=== PATIENT | female | born 1950 | race Caucasian/White ===

== ENCOUNTER → 2020-02-07 09:01 | Outpatient (BNVA) | payer MEDICARE, OTHER, SELFPAY | PROVIDERS: PCP Internal Medicine; Referring Provider Internal Medicine; Visit Provider Internal Medicine Endocrinology, Diabetes & Metabolism | DX: M81.0 Age-related osteoporosis without current pathological fracture (principal); E55.9 Vitamin D deficiency, unspecified | CPT/HCPCS: 99212 ==

== ENCOUNTER 2020-02-08 11:23 | Outpatient (REF) | payer MEDICARE, OTHER, SELFPAY ==
[2020-02-08 14:21] LABS: Alanine Aminotransferase 19 U/L (0-31); Albumin Level 4.3 g/dL (3.5-5.0); Alkaline Phosphatase 97 U/L (39-117); Anion Gap 11 (12-20); Aspartate Amino Transferase 17 U/L (5-31); Bilirubin Total 0.6 mg/dL (0.0-1.0); Blood Urea Nitrogen 12 mg/dL (9-16); Carbon Dioxide 32 mmol/L (22-29); Chloride 102 mmol/L (96-108); Estimated Glomerular Filt Rate > 60; Glucose Fasting 98 mg/dL (60-99); Potassium 4.4 mmol/l (3.3-5.1); Sodium 141 mmol/L (135-145); Total Protein 6.6 g/dL (6.5-8.0)
[2020-02-08 14:42] LABS: Free T4 (Free Thyroxine) 1.03 ng/dL (0.71-1.85); Thyroid Stimulating Hormone 2.18 mIU/mL (0.32-4.0); Vitamin D 25-OH Total 23.7 ng/mL (>30)
[2020-02-11 13:16] LABS: Calcium (PTHI) 9.6 mg/dL (8.6-10.4); PTHI 38 pg/mL (14-64)
[2020-02-12 21:47] LABS: N-Telopeptide 55 (see note); NTXCreaRU 69 mg/dL (20-275)
[2020-02-13 14:47] LABS: Alkaline Phosphatase Bone 20.3 mcg/L (5.6-29.0)
== END 2020-02-08 11:24 | disposition home or self-care (01) ==
LOC: HO.10HDL 11:23
PROVIDERS: Visit Provider Internal Medicine Endocrinology, Diabetes & Metabolism
DX: M81.0 Age-related osteoporosis without current pathological fracture (principal)
CPT/HCPCS: 80053; 82306; 82523; 83970; 84075; 84439; 84443

== ENCOUNTER 2020-02-12 12:37 | Outpatient (REF) | payer MEDICARE, OTHER, SELFPAY ==
[2020-02-12 13:44] LABS: Total Volume 24 Hour Urine 2925 mL
[2020-02-12 14:21] LABS: Creatinine, mg/dL 34.02
[2020-02-13 18:17] LABS: Calcium, 24 Hr Urine 211 mg/24 h; Calcium/Creatinine Ratio 200 mg/g creat (30-275); Creatinine 24Hr Urine 1.05 g/24 h (0.50-2.15)
== END 2020-02-12 12:38 | disposition home or self-care (01) ==
LOC: HO.10HDLNP 12:37
PROVIDERS: Visit Provider Internal Medicine Endocrinology, Diabetes & Metabolism
DX: M81.0 Age-related osteoporosis without current pathological fracture (principal)
CPT/HCPCS: 82340; 82570

== ENCOUNTER 2020-03-24 06:52 | Outpatient (REF) | payer MEDICARE, OTHER, SELFPAY | END 2020-03-24 06:53 | disposition home or self-care (01) | LOC: HO.LAB 06:52 | PROVIDERS: PCP Internal Medicine; Visit Provider Internal Medicine | DX: Z20.828 Contact with and (suspected) exposure to other viral communicable diseases (principal) | CPT/HCPCS: C9803; U0003 ==

== ENCOUNTER → 2020-05-09 08:48 | Outpatient (BNVA) | payer MEDICARE, OTHER, SELFPAY | PROVIDERS: PCP Internal Medicine; Visit Provider Internal Medicine Endocrinology, Diabetes & Metabolism | DX: M81.0 Age-related osteoporosis without current pathological fracture (principal); E55.9 Vitamin D deficiency, unspecified | CPT/HCPCS: 99212 ==

== ENCOUNTER 2020-05-09 09:29 | Outpatient (REF) | payer MEDICARE, OTHER, SELFPAY ==
[2020-05-09 10:25] LABS: Albumin Level 4.5 g/dL (3.5-5.0); Calcium 9.9 mg/dL (8.4-10.2)
[2020-05-09 10:54] LABS: Vitamin D 25-OH Total 27.4 ng/mL (>30)
[2020-05-12 17:43] LABS: Calcium (PTHI) 10.3 mg/dL (8.6-10.4); PTHI 46 pg/mL (14-64)
[2020-05-15 16:42] LABS: N-Telopeptide 57 (see note); NTXCreaRU 64 mg/dL (20-275)
== END 2020-05-09 09:30 | disposition home or self-care (01) ==
LOC: HO.10HDL 09:29
PROVIDERS: Visit Provider Internal Medicine Endocrinology, Diabetes & Metabolism
DX: M81.0 Age-related osteoporosis without current pathological fracture (principal)
CPT/HCPCS: 36415; 82040; 82306; 82310; 82523; 83970

== ENCOUNTER 2020-08-15 08:29 | Outpatient (REF) | payer MEDICARE, OTHER, SELFPAY ==
--- NOTE | ~2020-08-15 | MM_ITS ---
EXAMINATION: MM DIAGNOSTIC DIGITAL BREAST TOMOSYNTHESIS, BILATERAL US DIAGNOSTIC ULTRASOUND BREAST, RIGHT CLINICAL INFORMATION: Pain in fullness noted by patient right axilla, chronic. Due for yearly. No known family history breast cancer. The lifetime risk of breast cancer based on the Tyrer-Cuzick Model is 5%. COMPARISON: Mammography: 06/28/2019, 05/08/2018, 08/05/2017, 07/07/2016 TECHNIQUE: Digital breast tomosynthesis is performed in both the craniocaudal and mediolateral oblique views along with computer-aided detection (CAD). Synthesized 2D images are generated from the tomosynthesis. Additional exaggerated right CC view and additional right MLO view are obtained. Ultrasound right breast is targeted to the area of clinical concern right axilla. Grayscale imaging and color Doppler are performed without and with harmonics. FINDINGS: There are scattered areas of fibroglandular density (ACR BI-RADS breast composition Category b). There are no significant masses, abnormal calcifications, or other abnormalities. There is no developing density. No lymphadenopathy. No skin thickening or coarsening of the Tay's ligaments. No significant changes from prior exams. Ultrasound right breast and axilla demonstrate no cystic or solid mass or architectural abnormality. No lymphadenopathy. No skin thickening or edema tracking in soft tissue planes. Results are discussed with the patient at time of visit. MM/MM tomosynthesis diagnostic BI IMPRESSION: 1. No mammographic evidence of malignancy or inflammatory changes. 2. Unremarkable targeted right breast ultrasound.. ASSESSMENT: BI-RADS 1: Negative RECOMMENDATION: 1. Patient should be managed based on the clinical impression. If clinically indicated, further evaluation may be considered with surgical consult. Decision to proceed with biopsy should be based on clinical grounds and degree of clinical concern. 2. Otherwise, routine annual screening mammography. This patient's information was entered into a reminder system with a target due date for their next mammogram.
== END 2020-08-15 08:30 | disposition home or self-care (01) ==
LOC: HO.MAMMO 08:29
PROVIDERS: PCP Pediatrics; Visit Provider Pediatrics
DX: N63.31 Unspecified lump in axillary tail of the right breast (principal)
CPT/HCPCS: 76642; 77062; 77066

== ENCOUNTER → 2021-06-09 08:00 | Outpatient (BNVA) | payer MEDICARE, OTHER, SELFPAY | PROVIDERS: PCP Pediatrics; Visit Provider Internal Medicine Endocrinology, Diabetes & Metabolism | DX: M81.0 Age-related osteoporosis without current pathological fracture (principal); E55.9 Vitamin D deficiency, unspecified; Z79.899 Other long term (current) drug therapy | CPT/HCPCS: 99212 ==

== ENCOUNTER 2021-10-15 11:27 | Outpatient (REF) | payer MEDICARE, OTHER, SELFPAY ==
--- NOTE | ~2021-10-15 | MM_ITS ---
EXAMINATION: MM SCREENING DIGITAL BREAST TOMOSYNTHESIS, BILATERAL CLINICAL INFORMATION: Screening. Asymptomatic. The lifetime risk of breast cancer based on the Tyrer-Cuzick Model is 5%. COMPARISON: Mammography: 08/15/2020, 06/28/2019, 05/08/2018 TECHNIQUE: Digital breast tomosynthesis is performed in both the craniocaudal and mediolateral oblique views along with computer-aided detection (CAD). Synthesized 2D images are generated from the tomosynthesis. FINDINGS: There are scattered areas of fibroglandular density (ACR BI-RADS breast composition Category b). There are no significant masses, abnormal calcifications, or other abnormalities. Parenchymal pattern is similar to prior studies. The axilla and skin contours are unremarkable. MM/MM tomosynthesis screening BI IMPRESSION: No mammographic evidence of malignancy. ASSESSMENT: BI-RADS 1: Negative RECOMMENDATION: Routine annual mammography screening. This patient's information was entered into a reminder system with a target due date for their next mammogram.
== END 2021-10-15 11:28 | disposition home or self-care (01) ==
LOC: HO.MAMMO 11:27
PROVIDERS: PCP Pediatrics; Visit Provider Pediatrics
DX: Z12.31 Encounter for screening mammogram for malignant neoplasm of breast (principal)
CPT/HCPCS: 77063; 77067

== ENCOUNTER 2022-01-25 11:49 | Outpatient (REF) | payer MEDICARE, OTHER, SELFPAY ==
--- NOTE | ~2022-01-25 | XR_ITS ---
EXAMINATION: XR CHEST 2 VIEWS CLINICAL INFORMATION: Cough. COMPARISON: Chest radiographs dated 05/28/2010. TECHNIQUE: Frontal and lateral views of the chest were obtained. FINDINGS: The heart, great vessels, pulmonary vasculature and mediastinum are normal. The lungs show no focal infiltrate, effusion or pneumothorax. There is no acute osseous abnormality. XR/XR chest 2V IMPRESSION: No active cardiopulmonary disease.
== END 2022-01-25 11:50 | disposition home or self-care (01) ==
LOC: HO.HMGCX 11:49
PROVIDERS: PCP Pediatrics; Visit Provider Internal Medicine
DX: R05.3 Chronic cough (principal)
CPT/HCPCS: 71046

== ENCOUNTER 2022-10-26 10:03 | Outpatient (REF) | payer MEDICARE, OTHER, SELFPAY ==
--- NOTE | ~2022-10-26 | MM_ITS ---
EXAMINATION: MM SCREENING DIGITAL BREAST TOMOSYNTHESIS, BILATERAL CLINICAL INFORMATION: Screening. Asymptomatic. The lifetime risk of breast cancer based on the Tyrer-Cuzick Model is 4.9%. COMPARISON: Mammography: 10/15/2021, 08/15/2020, and dating back to 2014. TECHNIQUE: Digital breast tomosynthesis is performed in both the craniocaudal and mediolateral oblique views along with computer-aided detection (CAD). Synthesized 2D images are generated from the tomosynthesis. FINDINGS: There are scattered areas of fibroglandular density (ACR BI-RADS breast composition Category b). There are no significant masses, abnormal calcifications, or other abnormalities. The parenchymal pattern is unchanged from prior examinations. MM/MM tomosynthesis screening BI IMPRESSION: No mammographic evidence of malignancy. ASSESSMENT: BI-RADS BI-RADS 1 - Negative RECOMMENDATION: Routine annual mammography screening. 1 year F/U This examination should not preclude the clinical evaluation of a suspicious palpable abnormality. This patient's information was entered into a reminder system with a target due date for their next mammogram.
== END 2022-10-26 10:04 | disposition home or self-care (01) ==
LOC: HO.MAMMO 10:03
PROVIDERS: PCP Pediatrics; Visit Provider Pediatrics
DX: Z12.31 Encounter for screening mammogram for malignant neoplasm of breast (principal)
CPT/HCPCS: 77063; 77067

== ENCOUNTER → 2022-10-26 10:30 | Outpatient (BNV) | payer MEDICARE, SELFPAY | PROVIDERS: PCP Pediatrics; Visit Provider Radiology Diagnostic Radiology | DX: Z12.31 Encounter for screening mammogram for malignant neoplasm of breast (principal) | CPT/HCPCS: 77063; 77067 ==

== ENCOUNTER 2023-04-13 | Outpatient (REF) | payer MEDICARE, SELFPAY | END 2023-04-13 00:01 | disposition home or self-care (01) | LOC: HO.HHCLNP | PROVIDERS: Visit Provider Family Medicine | DX: N94.9 Unspecified condition associated with female genital organs and menstrual cycle (principal) | CPT/HCPCS: 36415; 87255 ==

== ENCOUNTER 2023-06-14 08:33 | Outpatient (REF) | payer MEDICARE, SELFPAY ==
[2023-06-14 14:17] LABS: MANUAL DIFF FLAG NO
[2023-06-14 14:22] LABS: Basophils Absolute Auto 0.1 X10*3/uL (0.0-0.2); Basophils Percent Auto 1.3 % (0-2); Eosinophils Absolute Auto 0.1 X10*3/uL (0.0-0.4); Hematocrit 40.7 % (37.0-47.0); Hemoglobin 13.2 g/dl (12.0-16.0); Imm Gran Abs Auto 0.01 X10*3/uL (0.00-0.03); Imm Gran Pct Auto 0.2 % (0.0-0.4); Lymphocytes Percent Auto 44.5 % (20-40); Mean Corpuscular HGB Conc 32.4 g/dl (31.0-35.0); Mean Corpuscular Hemoglobin 29.7 pg (27.0-33.0); Mean Corpuscular Volume 91.5 fL (80.0-98.0); Mean Platelet Volume 12.3 fL (9.4-12.3); Monocytes Absolute Auto 0.3 X10*3/uL (0.1-1.2); Monocytes Percent Auto 6.6 % (2-11); Neutrophils Absolute Auto 2.1 x10*3/uL (2.0-8.3); Neutrophils Percent Auto 45.4 % (45-73); Platelet Count 215 X10*3/uL (160-400); Red Blood Count 4.45 X10*6/uL (4.20-5.50); Red Cell Distribution Width 13.2 % (11.0-16.0); White Blood Count 4.6 X10*3/uL (4.8-10.8)
[2023-06-14 17:09] LABS: Alanine Aminotransferase 17 U/L (0-31); Albumin Level 4.3 g/dL (3.5-5.0); Alkaline Phosphatase 81 U/L (39-117); Anion Gap 13 (12-20); Aspartate Amino Transferase 17 U/L (5-31); Bilirubin Total 0.5 mg/dL (0.0-1.0); Blood Urea Nitrogen 13 mg/dL (9-16); Calcium 9.8 mg/dL (8.4-10.2); Carbon Dioxide 30 mmol/L (22-29); Chloride 103 mmol/L (96-108); Cholesterol 234 mg/dL (<200); Estimated Glomerular Filt Rate > 60; Glucose Random 82 mg/dL (60-115); HDL Cholesterol 67 mg/dL (>40); LDL Cholesterol Calculated 148 mg/dL (<100); Potassium 3.9 mmol/L (3.3-5.1); Sodium 142 mmol/L (135-145); Total Protein 6.9 g/dL (6.5-8.0); Triglycerides 99 mg/dL (<150)
[2023-06-14 17:12] LABS: TSH reflex Free T4 2.83 uIU/mL (0.32-4.0); Vitamin D 25-OH Total 28.9 ng/mL (>30)
[2023-06-15 11:49] LABS: Folate 12.5 ng/mL (> or = 4.0); Vitamin B12 373 pg/mL (200-900)
== END 2023-06-14 08:34 | disposition home or self-care (01) ==
LOC: HO.CHCLDS 08:33
PROVIDERS: Visit Provider Pediatrics
DX: E78.5 Hyperlipidemia, unspecified (principal); M81.0 Age-related osteoporosis without current pathological fracture
CPT/HCPCS: 36415; 80053; 80061; 82306; 82607; 82746; 84443; 85025

== ENCOUNTER 2023-08-30 15:48 | Outpatient (REF) | payer MEDICARE, SELFPAY | END 2023-08-30 15:49 | disposition home or self-care (01) | LOC: HO.HHCL 15:48 | PROVIDERS: Visit Provider Advanced Practice Midwife | DX: N94.9 Unspecified condition associated with female genital organs and menstrual cycle (principal) | CPT/HCPCS: 36415; 86695; 86696 ==

== ENCOUNTER 2023-10-07 14:22 | Outpatient (REF) | payer MEDICARE, SELFPAY ==
[2023-10-07 17:48] LABS: MANUAL DIFF FLAG NO
[2023-10-07 17:55] LABS: Basophils Absolute Auto 0.1 X10*3/uL (0.0-0.2); Basophils Percent Auto 1.2 % (0-2); Eosinophils Absolute Auto 0.1 X10*3/uL (0.0-0.4); Eosinophils Percent Auto 2.2 % (0-4); Hematocrit 38.7 % (37.0-47.0); Hemoglobin 13.2 g/dl (12.0-16.0); Imm Gran Abs Auto 0.01 X10*3/uL (0.00-0.03); Imm Gran Pct Auto 0.2 % (0.0-0.4); Lymphocytes Absolute Auto 2.5 X10*3/uL (1.2-4.9); Lymphocytes Percent Auto 42.9 % (20-40); Mean Corpuscular HGB Conc 34.1 g/dl (31.0-35.0); Mean Corpuscular Hemoglobin 30.4 pg (27.0-33.0); Mean Corpuscular Volume 89.2 fL (80.0-98.0); Mean Platelet Volume 11.5 fL (9.4-12.3); Monocytes Absolute Auto 0.4 X10*3/uL (0.1-1.2); Neutrophils Absolute Auto 2.8 x10*3/uL (2.0-8.3); Neutrophils Percent Auto 47.5 % (45-73); Platelet Count 211 X10*3/uL (160-400); Red Blood Count 4.34 X10*6/uL (4.20-5.50); Red Cell Distribution Width 12.5 % (11.0-16.0); White Blood Count 5.8 X10*3/uL (4.8-10.8)
[2023-10-07 18:14] LABS: Iron 82 mcg/dL (30-160); Percent Iron Saturation 28 % (15-50); Total Iron Binding Capacity 288 mcg/dL (228-428); Unsaturated Iron Binding 206 ug/dL
[2023-10-07 18:31] LABS: TSH reflex Free T4 3.22 uIU/mL (0.32-4.0)
[2023-10-07 19:07] LABS: Syphilis Screen Nonreactive (Nonreactive)
[2023-10-11 17:53] LABS: Lyme Abs Screen <0.90 index
== END 2023-10-07 14:23 | disposition home or self-care (01) ==
LOC: HO.CHCLDS 14:22
PROVIDERS: Visit Provider Family Medicine
DX: H93.11 Tinnitus, right ear (principal); R79.89 Other specified abnormal findings of blood chemistry; P09.2 Abnormal findings on neonatal screening for congenital endocrine disease; R68.89 Other general symptoms and signs
CPT/HCPCS: 36415; 83540; 84443; 85025; 86617; 86618; 86780

== ENCOUNTER 2023-11-01 09:36 | Outpatient (REF) | payer MEDICARE, SELFPAY | END 2023-11-01 09:37 | disposition home or self-care (01) | LOC: HO.MAMMO 09:36 | PROVIDERS: PCP Pediatrics; Visit Provider Pediatrics | DX: Z12.31 Encounter for screening mammogram for malignant neoplasm of breast (principal) | CPT/HCPCS: 77063; 77067 ==

== ENCOUNTER → 2023-11-01 10:00 | Outpatient (BNV) | payer MEDICARE, SELFPAY | PROVIDERS: PCP Pediatrics; Visit Provider Radiology Diagnostic Radiology | DX: Z12.31 Encounter for screening mammogram for malignant neoplasm of breast (principal) | CPT/HCPCS: 77063; 77067 ==

== ENCOUNTER 2024-03-21 12:48 | Outpatient (REF) | payer MEDICARE, MEDICAID, SELFPAY | END 2024-03-21 12:49 | disposition home or self-care (01) | LOC: HO.SH 12:48 | PROVIDERS: Visit Provider Pediatrics | DX: Z01.118 Encounter for examination of ears and hearing with other abnormal findings (principal); H90.3 Sensorineural hearing loss, bilateral; H93.11 Tinnitus, right ear | CPT/HCPCS: 92557; 92567 ==

== ENCOUNTER 2024-05-25 10:32 | Outpatient (REF) | payer MEDICARE, MEDICAID, SELFPAY ==
--- OUTSIDE RECORDS SUMMARY | 2024-05-25 11:23 | XMS_ITS | Encounter Summary ---
Author Organization [facility] [employer] Address [address] [place] [id number] Care Team Providers Care Seaman Officer Name Role Phone Idalia Clark MD Primary Care Provider [phone] Encounter Details Date Type Department Care Team (Latest Contact Info) Description 07/02/2020 Abstract [facility] CONVERSIONS Dental, Provider, DDS Social History Tobacco Use Types Packs/Day Years Used Date Smoking Tobacco: Never Assessed Comments Unknown Sex and Gender Information Value Date Recorded Sex Assigned at Female 02/08/2022 10:20 AM EDT Legal Sex Female 10:20 AM EDT Gender Identity Female 02/08/2022 10:20 AM EDT Sexual Orientation Straight 02/08/2022 10 :20 AM EDT documented as of this encounter Plan of Treatment Upcoming Encounters Date Type Department Care Team ( st Contact Info) Description 06/28/2024 9:15 AM EDT Office Visit [facility] CHC MED & PEDS [address] [place] [address] Idalia Clark MD [address] [place] [address] documented as of this encounter Visit Diagnoses Not on filedocumented in this encounter Care Teams Seaman Officer Relationship Specialty Start Date End Date Idalia Clark MD [address] [place] [address] PCP - General Family Medicine 07/31/20 documented as of this encounter
--- OUTSIDE RECORDS SUMMARY | 2024-05-25 11:23 | XMS_ITS | Encounter Summary ---
Author Organization [facility] [employer] Address [address] [place] [address] Care Team Providers Care Epic Trainer Name Role Phone Idalia Clark MD Primary Care Provider [phone] Encounter Details Date Type Department Care Team (Latest Contact Info) Description 05/25/2024 Travel Social History Tobacco Use Types Packs/Day Years Used Date Smoking Tobacco: Never Passive Smoke Exposure: Never Smokeless Tobacco: Never Alcohol Use Standard Drinks/Week Comments Never 0 (1 standard drink = 0.6 oz pur e alcohol) Comments No Sex and Gender Information Value Date Recorded Sex Assigned at Female 02/08/2022 10:20 AM EDT Legal Sex Female 10:20 AM EDT Gender Identity Female 02/08/2022 10:20 AM EDT Sexual Orientation Straight 02/08/2022 10 :20 AM EDT documented as of this encounter Plan of Treatment Upcoming Encounters Date Type Department Care Team (Late st Contact Info) Description 06/28/2024 9:15 AM EDT Office Visit [facility] CHC MED & PEDS [address] [place] [address] Idalia Clark MD [address] [place] [address] documented as of this encounter Visit Diagnoses Not on filedocumented in this encounter Care Teams Epic Trainer Relationship Specialty Start Date End Date Idalia Clark MD [address] [place] [address] PCP - General Family Medicine 07/31/20 documented as of this encounter
--- OUTSIDE RECORDS SUMMARY | 2024-05-25 11:23 | XMS_ITS | Encounter Summary ---
Author Organization [employer] Address [address] [facility] [address] [place] [address] Care Team Providers Care Excel Vba Developer Name Role Phone Idalia Clark MD Primary Care Provider [phone] Reason for Visit * Reason Onset Date Comments pre-op 05/16/2024 Encounter Details Date Type Department Care Team ([facility] st Contact Info) Description 05/16/2024 Telephone [facility] MEDICINE [address] [place] [address] Idalia Clark MD [address] [place] [address] pre-op Social History Tobacco Use Types Packs/Day Years [...] AM EDT documented as of this encounter Miscellaneous Notes * Telephone Encounter - Graeme Cristobal - 05/24/2024 9:49 AM EST Spoke to pt agreed to pre-op tomorrow 05/[address] Clark VM left to facility * Telephone Encounter - Graeme Cristobal - 05/16/2024 3:04 PM EST Date of Surgery: 06/14/24 Surgical procedure being done: cataract surgery Type of anesthesia: MAC Lab needed: No EKG: No Surgeon's name: Dr Resendiz Facility name: [facility] Surgeon's office number: [phone] ext [phone] Surgeon's office fax number: [phone] Contact name (person you spoke with): Karyn or radhika Last office note from surgeon requested: No Send Message to Zhane Mccray and Graeme Cristobal documented in this encounter Plan of Treatment Upcoming Encounters Date Type Department Care Team ([facility] st Contact Info) Description 06/28/2024 9:15 AM EDT Office Visit [facility] CHC MED & PEDS [address] [place] [address] Idalia Clark MD [address] [place] [address] documented as of this encounter Visit Diagnoses Not on filedocumented in this encounter Care Teams Excel Vba Developer Relationship Specialty Start Date End Date Idalia Clark MD [address] [place] [address] PCP - General Family Medicine 07/31/20 documented as of this encounter
--- OUTSIDE RECORDS SUMMARY | 2024-05-25 11:23 | XMS_ITS | Encounter Summary ---
Author Organization [employer] Address [address] [place] [address] [address] [place] [address] Care Team Providers Care Computer Education Professor Name Role Phone Idalia Clark MD Primary Care Provider [phone] Encounter Details Date Type Department Care Team ([facility] st Contact Info) Description 05/25/2024 9:15 AM EST Office Visit [facility] CHC MED & PEDS [address] [place], [place] [phone] Idalia Clark MD [address] [place] [address] Dyslipidemia (Primary Dx); Senile osteoporosis; Overweight (BMI 25.0-29.9); Dietary counseling; Exercise counseling; Preoperative clearance Social History Tobacco Use Types Packs/Day Years [...] AM EDT documented as of this encounter Last Filed Vital Signs Vital Sign Reading Time Taken Comments Blood Pressure 136/72 05/25/2024 9:24 AM EST Pulse 61 05/25/2024 9:24 AM EST Temperature 36.3 ??C (97.4 ??F) 05/25/2024 9:24 AM ES T Respiratory Rate 20 05/25/2024 9:24 AM EST Oxygen Saturation 98% 05/25/2024 9:24 AM EST Inhaled Oxygen Concentration - - Weight 76.2 kg (168 lb) 05/25/2024 9:24 AM EST Height 165.1 cm (5' 5 ) 05/25/2024 9:24 AM EST Body Mass Index 27.96 05/25/2024 9:24 AM EST documented in this encounter Progress Notes * Idalia Clark MD - 05/25/2024 9:15 AM EST Subjective Patient ID: Yuli Stewart is a 73 y.o. female who presents for preop clearance. Yuli is a very healthy 73-year-old female patient of ours here for preop clearance for eye cataract surgery to be performed on June 14 of this year. She feels very well today and is very ready for this surgery to be done.. Has no complaints. Her vitals are stable. Her medical problems include postmenopausal osteoporosis and mild hyperlipidemia. She is not on any new medications. She is still working. She is still very active physically as well. Has very good exercise tolerance. She has gained about 15 pounds since her last visit and she is very worried about it. She is vegetarian and eatsfish and eggs but also likes pastries. She had a hearing test done at [facility] which was abnormal in the right ear, needs hearing aids. Review of Systems Constitutional: Positive for unexpected weight change. Negative for activity change, chills and fever. Respiratory: Negative for cough, shortness of breath and wheezing. Cardiovascular: Negative for chest pain, palpitations and leg swelling. Gastrointestinal: Negative for abdominal pain and blood in stool. Endocrine: Negative for polydipsia and polyuria. Genitourinary: Negative for decreased urine volume, difficulty urinating, dysuria and hematuria. Musculoskeletal: Negative for arthralgias and gait problem. Skin: Negative for color change and rash. Neurological: Negative for dizziness and headaches. Hematological: Negative for adenopathy. Psychiatric/Behavioral: Negative for dysphoric mood, hallucinations, sleep disturbance and suicidalideas. The patient is not nervous/anxious. Objective BP 136/72 (BP Location: Left arm, Patient Position: Sitting, BP Cuff Size: Adult) Pulse61 Temp 97.4 ??F (36.3 ??C) (Oral) Resp 20 Ht 5' 5 (1.651 m) Wt 168 lb (76.2 kg) SpO2 98% BMI 27.96 kg/m?? Physical Exam Vitals reviewed. Constitutional: General: She is not in acute distress. Appearance: Normal appearance. She is not ill-appearing. HENT: Head: Normocephalic. Right Ear: Tympanic membrane and ear canal normal. Left Ear: Tympanic membrane and ear canal normal. Nose: Nose normal. Mouth/Throat: Mouth: Mucous membranes are moist. Pharynx: No oropharyngeal exudate or posterior oropharyngeal erythema. Eyes: Extraocular Movements: Extraocular movements intact. Conjunctiva/sclera: Conjunctivae normal. Pupils: Pupils are equal, round, and reactive to light. Cardiovascular: Rate and Rhythm: Normal rate and regular rhythm. Pulses: Normal pulses. Heart sounds: Normal heart sounds. Pulmonary: Effort: Pulmonary effort is normal. No respiratory distress. Breath sounds: Normal breath sounds. Abdominal: Palpations: Abdomen is soft. There is no mass. Tenderness: There is no abdominal tenderness. There is no right CVA tenderness, left CVA tendernessor guarding. Musculoskeletal: General: Normal range of motion. Cervical back: Normal range of motion. Right lower leg: No edema. Left lower leg: No edema. Skin: General: Skin is warm. Capillary Refill: Capillary refill takes less than 2 seconds. Neurological: General: No focal deficit present. Mental Status: She is alert and oriented to person, place, and time. Mental status is at baseline. Psychiatric: Mood and Affect: Mood normal. Behavior: Behavior normal. Thought Content: Thought content normal. Judgment: Judgment normal. Assessment/Plan Diagnoses and all orders for this visit: Dyslipidemia Comments: Recheck fasting lipids as well as other labs that are due today call patient with results if abnormal. Follow-up with me as planned. Orders: - Basic Metabolic Panel, Fasting; Future - Hemoglobin A1c; Future - Hepatic Function Panel; Future - Vitamin D, 25-Hydroxy, Total, Immunoassay; Future - Vitamin B12/Folate, Serum Panel; Future - TSH W/Reflex to FT4; Future - Lipid Panel, Standard; Future Senile osteoporosis Comments: Currently on calcium and vitamin D replacement only. Was having side effect from osteoporosis medication. Orders: - Basic Metabolic Panel, Fasting; Future - Hemoglobin A1c; Future - Hepatic Function Panel; Future - Vitamin D, 25-Hydroxy, Total, Immunoassay; Future - Vitamin B12/Folate, Serum Panel; Future - TSH W/Reflex to FT4; Future - Lipid Panel, Standard; Future Overweight (BMI 25.0-29.9) Comments: Check fasting labs today. I assume her cholesterol levels will be more elevated. May need statin therapy if left ear ASCVD risk mandates it. Orders: - Basic Metabolic Panel, Fasting; Future - Hemoglobin A1c; Future - Hepatic Function Panel; Future - Vitamin D, 25-Hydroxy, Total, Immunoassay; Future - Vitamin B12/Folate, Serum Panel; Future - TSH W/Reflex to FT4; Future - Lipid Panel, Standard; Future Dietary counseling Dietary Recommendations: Fruits, vegetables, whole grains, protein foods, and fat-free or low-fat dairy products are healthychoices. Eat different types of protein foods in your diet. This can include seafood, lean meats, poultry, beans, peas, lentils, nuts, seeds, soy products, and eggs. Limit foods and beverages higher in added sugars, saturated fat, and sodium. Exercise Recommendations: At least 150 minutes of moderate-intensity physical activity per week, or an equivalent combinationof moderate- and vigorous-intensity activity Exercise counseling Preoperative clearance Comments: Patient had a normal physical exam today as well as vital signs. Patient is cleared to have her cataract eye surgery performed on June 14, 2024 as planned. Note will be faxed to ophthalmology clinic. documented in this encounter Plan of Treatment Upcoming Encounters Date Type Department Care Team ([facility] Contact Info) Description 06/28/2024 9:15 AM EDT Office Visit [facility] MED & PEDS [address] [place] [address] Idalia Clark MD [address] [place] [address] Scheduled Orders Name Type Priority Associated Diagnoses Orde r Schedule Basic Metabolic Panel, Fasting Lab Routine Dyslipidemia Senile osteoporosis Overweight (BMI 25.0-29.9) Expected: 05/25/2024 (Approximate), Expires: 05/25/2025 Hemoglobin A1c Lab Routine Dyslipidemia Senile osteoporosis Overweight (BMI 25.0-29.9) Expected: 05/25/2024 (Approximate), Expires: 05/25/2025 Hepatic Function Panel Lab Routine Dyslipidemia Senile osteoporosis Overweight (BMI 25.0-29.9) Expected: 05/25/2024 (Approximate), Expires: 05/25/2025 Vitamin D, 25-Hydroxy, Total, Immunoassay Lab Routine Dyslipidemia Senile osteoporosis Overweight (BMI 25.0-29.9) Expected: 05/25/2024 (Approximate), Expires: 05/25/2025 Vitamin B12/Folate, Serum Panel Lab Routine Dyslipidemia Senile osteoporosis Overweight (BMI 25.0-29.9) Expected: 05/25/2024, Expires: 05/25/2025 TSH W/Reflex to FT4 Lab Routine Dyslipidemia Senile osteoporosis Overweight (BMI 25.0-29.9) Expected: 05/25/2024 (Approximate), Expires: 05/25/2025 Lipid Panel, Standard Lab Routine Dyslipidemia Senile osteoporosis Overweight (BMI 25.0-29.9) Expected: 05/25/2024 (Approximate), Expires: 05/25/2025 documented as of this encounter Visit Diagnoses Diagnosis Dyslipidemia- Primary Other and unspecified hyperlipidemia Senile osteoporosis Overweight (BMI 25.0-29.9) Overweight Dietary counseling Dietary surveillance and counseling Exercise counseling Preoperative clearance Unspecified pre-operative examination documented in this encounter Care Teams Computer Education Professor Relationship Specialty Start Date End Date Idalia Clark MD [address] [place] [id number] PCP - General Family Medicine 07/31/20 documented as of this encounter
--- OUTSIDE RECORDS SUMMARY | 2024-05-25 11:23 | XMS_ITS | Encounter Summary ---
Author Organization [facility] [employer] [facility] Address [address] [place] [address] [address] [place] [address] Care Team Providers Care Concrete Bucket Loader Name Role Phone Idalia Clark MD Primary Care Provider [phone] Encounter Details Date Type Department Care Team (Late Contact Info) Description 02/17/2023 Abstract [facility] MEDICINE [address] [place] [address] Nisreen Bright Social History Tobacco Use Types Packs/Day Years Used Date Smoking Tobacco: Never Passive Smoke Exposure: Never Smokeless Tobacco: Never Comments Unknown Sex and Gender Information Value Date Recorded Sex Assigned at Female 02/08/2022 10:20 AM EDT Legal Sex Female 10:20 AM EDT Gender Identity Female 02/08/2022 10:20 AM EDT Sexual Orientation Straight 02/08/2022 10 :20 AM EDT documented as of this encounter Plan of Treatment Upcoming Encounters Date Type Department Care Team (Late Contact Info) Description 06/28/2024 9:15 AM EDT Office Visit [facility] CHC MED & PEDS [address] [place] [address] Idalia Clark MD [address] [place] [address] documented as of this encounter Procedures Procedure Name Priority Date/Time Associated Diagnosis Comments COLONOSCOPY Routine 10/03/2014 documented in this encounter Results * Colonoscopy (10/03/2014) Colonoscopy Normal Normal Narrative Nisreen Bright - 10/03/2014 Recommended 10 year follow up us Historical Provider HEALTH MAINTENANCE Final Result documented in this encounter Visit Diagnoses Not on filedocumented in this encounter Care Teams Concrete Bucket Loader Relationship Specialty Start Date End Date Idalia Clark MD [address] [place] [address] PCP - General Family Medicine 07/31/20 documented as of this encounter
--- OUTSIDE RECORDS SUMMARY | 2024-05-25 11:23 | XMS_ITS | Encounter Summary ---
Author Organization [employer] Address [address] [place] [address] [place] [address] Care Team Providers Care Sports Information Director Name Role Phone Idalia Clark MD Primary Care Provider [phone] Reason for Visit * Reason Onset Date Comments Chart Prep 05/24/2024 Encounter Details Date Type Department Care Team ([facility] Contact Info) Description 05/24/2024 Telephone [facility] CHC MED & PEDS [address] [place], [place] [phone] Idalia Clark MD [address] [place] [address] Chart Prep Social History Tobacco Use Types Packs/Day Years [...] encounter Miscellaneous Notes * Telephone Encounter - Kalyani Pollock MA - 05/24/2024 3:26 PM EST Chart Prep Labs: not applicable Images: done Vaccines due: yes Referrals: n/a Screenings: n/a Overdue care gaps: Sbirt, SDOH, PHQ-9, Oral Health, disability screening documented in this encounter Plan of Treatment Upcoming Encounters Date Type Department Care Team ([facility] Contact Info) Description 06/28/2024 9:15 AM EDT Office Visit [facility] CHC MED & PEDS [address] [place] [address] Idalia Clark MD [address] [place] [address] documented as of this encounter Visit Diagnoses Not on filedocumented in this encounter Care Teams Sports Information Director Relationship Specialty Start Date End Date Idalia Clark MD [address] [place] [address] PCP - General Family Medicine 07/31/20 documented as of this encounter
--- OUTSIDE RECORDS SUMMARY | 2024-05-25 11:23 | XMS_ITS | Encounter Summary ---
Author Organization [facility] [employer] Address [address] [place] [address] Care Team Providers Care Contract Negotiation Manager Name Role Phone Idalia Clark MD Primary Care Provider [phone] Encounter Details Date Type Department Care Team (Latest Contact Info) Description 05/24/2024 Travel Social History Tobacco Use Types Packs/Day [...] Description 06/28/2024 9:15 AM EDT Office Visit [facility] CHC MED & PEDS [address] [place] [address] Idalia Clark MD [address] [place] [address] documented as of this encounter Visit Diagnoses Not on filedocumented in this encounter Care Teams Contract Negotiation Manager Relationship Specialty Start Date End Date Idalia Clark MD [address] [place] [address] PCP - General Family Medicine 07/31/20 documented as of this encounter
--- OUTSIDE RECORDS SUMMARY | 2024-05-25 11:23 | XMS_ITS | Encounter Summary ---
Author Organization [facility] [employer] Address [address] [place] [address] Care Team Providers Care Venetian Blind Machine Operator Name Role Phone Idalia Clark MD Primary Care Provider [phone] Encounter Details Date Type Department Care Team (Latest Contact Info) Description 01/11/2019 Abstract [facility] CONVERSIONS Dental, Provider, DDS Social History Tobacco [...] Description 06/28/2024 9:15 AM EDT Office Visit [facility] CHC MED & PEDS [address] [place] [address] Idalia Clark MD [address] [place] [address] documented as of this encounter Visit Diagnoses Not on filedocumented in this encounter Care Teams Venetian Blind Machine Operator Relationship Specialty Start Date End Date Idalia Clakr MD [address] [place] [address] PCP - General Family Medicine 07/31/20 documented as of this encounter
--- OUTSIDE RECORDS SUMMARY | 2024-05-25 11:23 | XMS_ITS | Clinical Summary ---
Author Organization [employer] Address [address] [place] [address] 7[address] [place] [address] Care Team Providers Care Protection Consultant Name Role Phone Idalia Clark MD Primary Care Provider [phone] Allergies No known active allergies Medications Coenzyme Q10 (COQ-10 PO) Active omega-3 (Fish Oil) 1000 MG capsule take 2 Capsule by Oral route 2 times every day Active raloxifene (Evista) 60 MG tablet Take 1 tablet by mouth at bed time. Active Oyster Shell Calcium 500 MG tablet TAKE ONE TABLET TWICE DAILY 180 tablet 1 4 Active naproxen (Naprosyn) 500 MG tablet Take 1 tablet (500 mg) by mouth 2 times daily. 60 tablet 4 05/25/19 25 Discontinu ed(Ineffec tive) clotrimazole (Lotrimin) 1 % cream Use small amount to rectal/genit al area bid for 7 days 30 g 4 05/25/19 25 Discontinu ed(Therapy completed) traZODone (Desyrel) 100 MG tablet Take 1 tablet (100 mg) by mouth at bedtime. 30 tablet 3 4 05/25/19 25 Discontinu ed(Ineffec tive) Active Problems Problem Noted Date Diagnosed Date Blurry vision, right eye 10/07/2023 Tinnitus of right ear 10/07/2023 Assessment & Plan (10/11/2023 9:20 AM EDT): Right sided tinnitus of right ear, will send to audiology. 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 Recommended f/up PCP Genital lesion, female 04/13/2023 Assessment & Plan (04/13/2023 6:21 PM EST): Likely irritation for baby wipes with resultant yeast infection. Rx clotrimazole topical. HSV culture obtained. Seek medical attention if symptoms worsen or do not improve. Insomnia 04/29/2022 Assessment & Plan (04/13/2023 3:16 PM EST): Chronic issue, strongly recommended to bring her chronic concern with her PCP. Will send trial of trazodone. Recommended f/up to be scheduled Future Appointments Date Time Provider Department Center 04/18/2023 1:00 PM Gurmeet Dawkins [facility] 05/11/2023 11:15 AM Idalia Clark MD [facility] MED [facility] Dyslipidemia 08/15/2018 04/13/2023 Senile osteoporosis 02/15/2018 Encounters Date Type Department Care Team Description 05/25/2024 9:15 AM EST Office Visit [facility] PEDS [address] [place] [address] Idalia Clark MD Dyslipidemia (Primary Dx); Senile osteoporosis; Overweight (BMI 25.0-29.9); Dietary counseling; Exercise counseling; Preoperative clearance 05/25/2024 Travel 05/24/2024 Telephone [facility] [address] [place] [address] Idalia Clark MD Chart Prep 05/24/2024 Travel 05/16/[address] [facility] MED[facility] [address] [place] [address] Idalia Clark MD pre-op 03/12/2024 Telephone [facility] [address] [place] [address] Idalia Clark MD Referral from Last 3 Months Immunizations Name Administration Dates Next Due Influenza Quadrivalent Adjuvanted 04/28/2023 Influenza injectable quadriv alent IIV4 with preservative 01/05/2017 Influenza injectable quadriv alent preservative free 01/01/2019 Influenza, High Dose Seasona l, Preservative Free 12/14/2023,01/17/2018,01/29/2015 Influenza, IIV3, injectable 01/09/2014 Influenza, Split (incl. aditya fied surface antigen) 04/26/2013 Influenza, trivalent, adjuvanted 03/08/2016 Pfizer Covid-19 Vaccine 12+ 03/27/2021,,05/05/2020 Pneumococcal Conjugate PCV 13 03/09/2017 Pneumococcal Polysaccharide PPSV23 07/24/2014 RSV Bivalent 05/11/2023 Tdap 04/27/2023,04/26/2013 Zoster, Recombinant 05/11/2023 Zoster, live 04/26/2013 Social History Tobacco Use Types Packs/Day Years Used Date Smoking Tobacco: Never Passive Smoke Exposure: Never Smokeless Tobacco: Never Tobacco Cessation:Counseling Given: Not Answered Alcohol Use Standard Drinks/Week Comments Never 0 (1 standard drink = 0.6 oz pur e alcohol) Comments No Sex and Gender Information Value Date Recorded Sex Assigned at Female 02/08/2022 10:20 AM EDT Legal Sex Female 10:20 AM EDT Gender Identity Female 02/08/2022 10:20 AM EDT Sexual Orientation Straight 02/08/2022 10 :20 AM EDT Last Filed Vital Signs Vital Sign Reading [...] Mass Index 27.96 05/25/2024 9:24 AM EST Plan of Treatment Upcoming Encounters Date Type Department Care Team ([facility] st Contact Info) Description 06/28/2024 9:15 AM EDT Office Visit [facility] PEDS [address] [place] [address] Idalia Clark MD [address] [place] [address] Health Maintenance Due Date Last Done Comments CT Colonography 1950 Depression Screening 1950 FIT 1950 FOBT 1950 SDOH Screening 1950 Sigmoidoscopy 1950 Alcohol/Substance Use Screening 1961 Hepatitis C Screening 06/23/1967 Zoster Vaccines (3 of 3) 07/06/2023 05/11/2023, 04/11 Dental Oral Exam 11/25/2023 05/26/2023, , 01/11/2019 Dental Prophylaxis 11/25/2023 05/26/2023, 0 04/23/2021, 07/02/2020, Additional history exists Dental X-Ray: Bitewings 05/27/2024 05/26/19, 04/23/2021, 01/11/2019 Colonoscopy 10/03/2024 10/03/2014 Tobacco Screening 05/25/2025 05/25/2024 Mammogram 10/31/2025 11/01/2023, 10/09, 10/15/2021, Additional history exists Dental X-Ray: Full Mouth 05/27/2026 05/26/2023, 1006/2018 Colorectal Cancer Screening 07/02/2026 FIT DNA/Cologuard 07/02/2026 07/03/2023 DTaP/Tdap/Td Vaccines (3 - Td or Tdap) 04/27/2033 04/27/2023, 04/26/2013 Pneumococcal Vaccine: 50+ Years Completed 03/09/2017, 07/24/2014 RSV Patients and Patients Aged 60 years or older Completed 05/11/2023 COVID-19 Vaccine Completed 12/14/2023, , 05/27/2020, Additional history exists Influenza Vaccine Completed 12/14/2023, , 01/01/2019, Additional history exists HIB Vaccines Aged Out No longer eligi ble based on patient's age to complete this topic HPV Vaccines Aged Out No longer eligi ble based on patient's age to complete this topic Hepatitis A Vaccines Aged Out No long er eligible based on patient's age to complete this topic Hepatitis B Vaccines Aged Out No long er eligible based on patient's age to complete this topic IPV Vaccines Aged Out No longer eligi ble based on patient's age to complete this topic Meningococcal Vaccine Aged Out No khadijah marla eligible based on patient's age to complete this topic RSV under 20 months Aged Out No longe r eligible based on patient's age to complete this topic Rotavirus Vaccines Aged Out No longer eligible based on patient's age to complete this topic Procedures Procedure Name Priority Date/Time Associated Diagnosis Comments BI MAMMOGRAM SCREENING TOMOSYNTHESIS BILATERAL Routine 11/01/2023 10:55 AM EDT LAB COLOGUARD?? COLON CANCER SCREEN Routine 07/03/2023 3:00 AM EDT Dyslipidemia Senile osteoporosis Colon cancer screening PROPHYLAXIS - ADULT Routine 05/26/2023 8 :00 AM EST INTRAORAL - COMPLETE SERIES OF RADIOGRAPHIC IMAGES Routine 05/26/2023 8:00 AM EST PERIODIC ORAL EVALUATION - ESTABLISHED PATIENT Routine 05/26/2023 8:00 AM EST HM COLONOSCOPY Routine 10/03/2014 from Last 3 Months or Most Recently Relevant to Health Maintenance Results * BI Mammogram Screening Tomosynthesis Bilateral (11/01/2023 10:55 AM EDT) Anatomical Region Laterality Modality Breast Bilateral Mammography 11/01/2023 10:5 5 AM EDT Narrative 11/22/2023 9:21 PM EDT ? [facility] ? [address] ?[place] [address] ? Mammography Report ? Signed ? Patient: Terry,Ludmilla ?MR#: MM ?? [id number] ? : 1950 ?Acct:[id number] ? Age/Sex: 73 / F ?ADM Date: 07/23/24 ? Loc: HO.MAMMO ? Attending Dr: Idalia Clark MD ? Ordering Physician: Idalia Clark MD ?Results: 1Ne ?? gative ? Date of Service: 11/01/23 ?Follow Up: 1 Year From Orig ?? inal Mammogram ? Procedure(s): MM tomosynthesis screening BI ?? Accession Number(s): [id number] ? cc: Idalia Clark MD ? EXAMINATION: ?? MM SCREENING DIGITAL BREAST TOMOSYNTHESIS, BILATERAL ? CLINICAL INFORMATION: ? Screening. Asymptomatic. ? COMPARISON: ?? Mammography: This study is compared with prior exams dating back to ?? 2019. ? TECHNIQUE: ?? Digital breast tomosynthesis is performed in both the craniocaudal and ?? mediolateral oblique views along with computer-aided detection (CAD). ?? Synthesized 2D images are generated from the tomosynthesis. ? FINDINGS: ?? There are scattered areas of fibroglandular density (ACR BI-RADS breast ?? composition Category b). ? There are no significant masses, abnormal calcifications, or other ?? abnormalities. ? MM/MM tomosynthesis screening BI ?? IMPRESSION: ?? No mammographic evidence of malignancy. ? ASSESSMENT: ? BI-RADS BI-RADS 1 - Negative ? RECOMMENDATION: ?? Routine annual mammography screening. ? 1 year F/U ? This examination should not preclude the clinical evaluation of a ?? suspicious palpable abnormality. ? This patient's information was entered into a reminder system with a ?? target due date for their next mammogram. ? Dictated By: ?Kiki Daniels MD ? Signed By: ?<Electronically signed by Kiki Daniels MD in OV> ? 11/22/232116 ? DD/ ? TD/TT: ? Sail Lay Out Worker: ? Procedure Note Donotmarychuyinterpreter, Image - [facility] [address] [place] [address] Mammography Report Signed Patient: Krys Stewart#: MM [id number] : 1950Acct:[id number] Age/Sex: 73 / FADM Date: 11/01/23 Loc: HO.MAMMO Attending Dr: Idalia Clark MD Ordering Physician: Idalia Clark MDResults: 1Ne gative Date of Service: 11/01/23Follow Up: 1 Year From Orig inal Mammogram Procedure(s): MM tomosynthesis screening BI Accession Number(s): [id number] cc: Idalia Clark MD EXAMINATION: MM SCREENING DIGITAL BREAST TOMOSYNTHESIS, BILATERAL CLINICAL INFORMATION: Screening. Asymptomatic. COMPARISON: Mammography: This study is compared with prior exams dating back to 2019. TECHNIQUE: Digital breast tomosynthesis is performed in both the craniocaudal and mediolateral oblique views along with computer-aided detection (CAD). Synthesized 2D images are generated from the tomosynthesis. FINDINGS: There are scattered areas of fibroglandular density (ACR BI-RADS breast composition Category b). There are no significant masses, abnormal calcifications, or other abnormalities. MM/MM tomosynthesis screening BI IMPRESSION: No mammographic evidence of malignancy. ASSESSMENT: BI-RADS BI-RADS 1 - Negative RECOMMENDATION: Routine annual mammography screening. 1 year F/U This examination should not preclude the clinical evaluation of a suspicious palpable abnormality. This patient's information was entered into a reminder system with a target due date for their next mammogram. Dictated By: Kiki Daniels MD Signed By: <Electronically signed by Kiki Daniels MD in OV> 11/22/23 2117 DD/ 1055 TD/TT: Sail Lay Out Worker: us Idalia Clark MD IMG BI PROCEDURES Edited Resu lt - Final * Cologuard?? colon cancer screening (07/03/2023 3:00 AM EDT) Cologuard Result Negative Negative 07/07/19 11:21 AM EDT [facility] (CLIA #:[id number]) Comment: NEGATIVE TEST RESULT. A negative Cologuard result indicates a low likelihood that a colorectal cancer (CRC) or advanced adenoma (adenomatous polyps with more advanced pre-malignant features) ??is present. The chance that a person with a negative Cologuard test has a colorectal cancer is less than 1 in 1500 (negative predictive value >99.9%) or has an ??advanced adenoma is less than ??5.3% (negative predictive value 94.7%). These data are based on a prospective cross-sectional study of 10,000 individuals at average risk for colorectal cancer who were screened with both Cologuard and colonoscopy. (Naseem Jacobs et al, N Engl J Med 2014;370(14):1286- 1297) The normal value (reference range) for this assay is negative. COLOGUARD RE-SCREENING RECOMMENDATION: Periodic colorectal cancer screening is an important part of preventive healthcare for asymptomatic individuals at average risk for colorectal cancer. ??Following a negative Cologuard result, the [place] Cancer Society and U.S. Multi-Society Task Force screening guidelines recommend a Cologuard re-screening interval of 3 years. References: [place] Cancer Society Guideline for Colorectal Cancer Screening: https://www.cancer.org/cancer/nmhje-fmcegt-judxpv/qryjitsux-xjkrfzltv-zdpdmgs/ac s-rec ommendations.html.; Americo JAIN, Bailey CR, Negrito ChaudhryK, Colorectal Cancer Screening: Recommendations for Physicians and Patients from the U.S. Multi-Society Task Force on Colorectal Cancer Screening , Am J Gastroenterology 2017; 112:2376-6852. TEST DESCRIPTION: Composite algorithmic analysis of stool DNA-biomarkers with hemoglobin immunoassay. ?? Quantitative values of individual biomarkers are not reportable and are not associated with individual biomarker result reference ranges. Cologuard is intended for colorectal cancer screening of adults of either sex, 45 years or older, who are at average-risk for colorectal cancer (CRC). Cologuard has been approved for use by the U.S. FDA. The performance of Cologuard was established in a cross sectional study of average-risk adults aged 50-84. Cologuard performance in patients ages 45 to 49 years was estimated by sub-group analysis of near-age groups. Colonoscopies performed for a positive result may find as the most clinically significant lesion: colorectal cancer [4.0%], advanced adenoma (including sessile serrated polyps greater than or equal to 1cm diameter) [20%] or non- advanced adenoma [31%]; or no colorectal neoplasia [45%]. These estimates are derived from a prospective cross-sectional screening study of 10,000 individuals at average risk for colorectal cancer who were screened with both Cologuard and colonoscopy. (Naseem Madera al, N Engl J Med 2014;370(14):5394-5663.) Cologuard may produce a false negative or false positive result (no colorectal cancer or precancerous polyp present at colonoscopy follow up). A negative Cologuard test result does not guarantee the absence of CRC or advanced adenoma (pre-cancer). The current Cologuard screening interval is every 3 years. ([place] Cancer Society and U.S. Multi-Society Task Force). Cologuard performance data in a 10,000 patient pivotal study using colonoscopy as the reference method can be accessed at the following location: www.[employer].CleanFish/results. Additional description of the Cologuard test process, warnings and precautions can be found at www.Miralupard.com. Stool specimen (specimen) 07/03/2023 3:00 AM EDT 07/04/2023 11:32 AM EDT us Idalia Clark MD LAB MOLECULAR DIAGNOSTICS ORD ERABLES Final Result [facility] (CLIA #:[id number]) [address] [place] [address], * Colonoscopy (10/03/2014) Colonoscopy Normal Normal Narrative Nisreen Bright - 10/03/2014 Recommended 10 year follow up Historical Provider MD HEALTH MAINTENANCE Final Result from Last 3 Months or Most Recently Relevant to Health Maintenance Insurance MEDICARE [facility] DENT[facility] - HSN FULL (MEDICAID) Care Teams Protection Consultant Relationship Specialty Start Date End Date Idalia Clark MD [address] [place] [phone] PCP - General Family Medicine 07/31/20
--- OUTSIDE RECORDS SUMMARY | 2024-05-25 11:23 | XMS_ITS | Encounter Summary ---
Author Organization [employer] Address [address] [place] [address] [place] [address] Care Team Providers Care Automobile Radiator Mechanic Name Role Phone Idalia Clark MD Primary Care Provider [phone] Reason for Visit * Reason Onset Date Comments cx appt rs 04/15/2023 Encounter Details Date Type Department Care Team (Late st Contact Info) Description 04/15/2023 Telephone [facility] ADULT DENTAL [address] [place], [place] [phone] Gurmeet Dawkins cx appt rs Social History Tobacco Use Types Packs/Day Years [...] encounter Miscellaneous Notes * Telephone Encounter - Sandra Nick - 04/15/2023 8:59 AM EST Patient called in to cancel appt for a week or two. documented in this encounter Plan of Treatment Upcoming Encounters Date Type Department Care Team (Late st Contact Info) Description 06/28/2024 9:15 AM EDT Office Visit [facility] PED[facility] [address] [place], [place] [phone] Idalia Clark MD [address] [place], [place] [phone] documented as of this encounter Visit Diagnoses Not on filedocumented in this encounter Care Teams Automobile Radiator Mechanic Relationship Specialty Start Date End Date Idalia Clark MD [address] [place] [id number] PCP - General Family Medicine 07/31/20 documented as of this encounter
[2024-05-25 14:41] LABS: Estimated Average Glucose 114 mg/dL; Hemoglobin A1C 133.0142 umol/L; Hemoglobin A1c % 5.6 % (<6.0); Total Hemoglobin (HGBA1C) 3518.1526 umol/L
[2024-05-25 14:52] LABS: Alanine Aminotransferase 32 U/L (0-31); Albumin Level 4.5 g/dL (3.5-5.0); Alkaline Phosphatase 98 U/L (39-117); Anion Gap 10 (12-20); Aspartate Amino Transferase 26 U/L (5-31); Bilirubin Direct 0.2 mg/dL (0.0-0.5); Bilirubin Total 0.5 mg/dL (0.0-1.0); Blood Urea Nitrogen 13 mg/dL (9-16); Calcium 10.1 mg/dL (8.4-10.2); Carbon Dioxide 28 mmol/L (22-29); Chloride 106 mmol/L (96-108); Cholesterol 207 mg/dL (<200); Estimated Glomerular Filt Rate > 60; Glucose Fasting 105 mg/dL (60-99); HDL Cholesterol 62 mg/dL (>40); LDL Cholesterol Calculated 127 mg/dL (<100); Potassium 4.8 mmol/L (3.3-5.1); Sodium 139 mmol/L (135-145); Total Protein 7.5 g/dL (6.5-8.0); Triglycerides 94 mg/dL (<150)
[2024-05-25 14:57] LABS: TSH reflex Free T4 3.78 uIU/mL (0.32-4.0)
[2024-05-25 15:14] LABS: Folate 16.9 ng/mL (> or = 4.0); Vitamin B12 487 pg/mL (200-900)
== END 2024-05-25 10:33 | disposition home or self-care (01) ==
LOC: HO.CHCLDS 10:32
PROVIDERS: Visit Provider Pediatrics
DX: E78.5 Hyperlipidemia, unspecified (principal); M81.0 Age-related osteoporosis without current pathological fracture; E66.3 Overweight; E74.8 Other specified disorders of carbohydrate metabolism
CPT/HCPCS: 36415; 80048; 80061; 80076; 82306; 82607; 82746; 83036; 84443

== ENCOUNTER 2024-08-28 | Outpatient (REF) | payer MEDICARE, MEDICAID, SELFPAY ==
--- OUTSIDE RECORDS SUMMARY | 2024-08-29 12:10 | XMS_ITS | Encounter Summary ---
Author Organization [employer] [facility] Address [address] [facility] 7[address] [place] [address] Care Team Providers Care Art Instructor Name Role Phone Idalia Clark MD Primary Care Provider [phone] Encounter Details Date Type Department Care Team (Late st Contact Info) Description 02/17/2023 Abstract [facility] [address] [place], [place] [phone] Nisreen Bright Social History Tobacco Use Types [...] as of this encounter Plan of Treatment Not on file documented as of this encounter Procedures Procedure Name Priority Date/Time Associated Diagnosis Comments COLONOSCOPY Routine 10/03/2014 documented in this encounter Results * Colonoscopy (10/03/2014) Colonoscopy Normal Normal Narrative Felix Brightba - 10/03/2014 Recommended 10 year follow up us Historical Provider HEALTH MAINTENANCE Final Result documented in this encounter Visit Diagnoses Not on filedocumented in this encounter Care Teams Art Instructor Relationship Specialty Start Date End Date Idalia Clark MD [address] [place] [address] PCP - General Family Medicine 07/31/20 documented as of this encounter
--- OUTSIDE RECORDS SUMMARY | 2024-08-29 12:10 | XMS_ITS | Encounter Summary ---
Author Organization [employer] [facility] Address [address] [place] [address] [address] [place] [address] Care Team Providers Care Route Sales Representative Name Role Phone Idalia Clark MD Primary Care Provider [phone] Encounter Details Date Type Department Care Team (Latest Contact Info) Description 07/02/2020 Abstract [facility] CONVERSIONS Dental, Provider, DDS Social History Tobacco [...] on file documented as of this encounter Visit Diagnoses Not on filedocumented in this encounter Care Teams Route Sales Representative Relationship Specialty Start Date End Date Idalia Clark MD [address] [place] [address] PCP - General Family Medicine 07/31/20 documented as of this encounter
--- OUTSIDE RECORDS SUMMARY | 2024-08-29 12:10 | XMS_ITS | Encounter Summary ---
Author Organization [employer] [facility] Address [address] [place] [address] [address] [place] [address] Care Team Providers Care Yellow Pages Space Salesperson Name Role Phone Idalia Clark MD Primary Care Provider [phone] Encounter Details Date Type Department Care Team (Latest Contact Info) Description 01/11/2019 Abstract [facility] CONVERSIONS Dental, Provider, DDS Social History Tobacco [...] on filedocumented in this encounter Care Teams Yellow Pages Space Salesperson Relationship Specialty Start Date End Date Idalia Clark MD [address] [place] [address] PCP - General Family Medicine 07/31/20 documented as of this encounter
--- OUTSIDE RECORDS SUMMARY | 2024-08-29 12:10 | XMS_ITS | Clinical Summary ---
Author Organization [employer] Address [address] [facility] 7t [place] [address] Care Team Providers Care Stoper Name Role Phone Idalia Clark MD Primary Care Provider [phone] Allergies No known active allergies Medications Coenzyme Q10 (COQ-10 PO) Active omega-3 (Fish Oil) 1000 MG capsule take 2 Capsule by Oral route 2 times every day Active Oyster Shell Calcium 500 MG tablet TAKE ONE TABLET TWICE DAILY 180 tablet 1 4 Active raloxifene (Evista) 60 MG tablet Take 1 tablet by mouth at bed time. 08/29/19 25 Discontinued acyclovir (Zovirax) 400 MG tablet Take 1 tab orally tid x 5 days 15 tablet 5 08/29/19 25 Discontinued Active Problems Problem Noted Date Diagnosed Date [...] Department Center 04/18/2023 1:00 PM Gurmeet Dawkins [facility] 05/11/2023 11:15 AM Idalia Clark MD [facility] Dyslipidemia 08/15/2018 04/13/2023 Senile osteoporosis 02/15/2018 Encounters Date Type Department Care Team Description 08/28/2024 3:15 PM EDT Procedure Visit [facility] [address], [place] [id number] Brenda Craven CNM Cervical cancer screening (Primary Dx); Polyp, cervix; Bloating; Senile osteoporosis; Breast cancer screening by mammogram 08/28/2024 Travel 08/27/2024 Travel 06/28/2024 9:15 AM EDT Office Visit [facility] [address] [place] [address] Idalia Clark MD Cataract cortical, senile, left (Primary Dx); Actinic keratitis, unspecified laterality 06/28/2024 Travel 06/27/2024 Telephone [facility] [address] [place] [address] Idalia Clark MD Chart Prep 2024 Population Health Risk Score [facility] Department [address] [place] [address] Provider, Population Health Generic 06/21/2024 Patient Outreach [facility] [address] [place] [address] Idalia Clark MD Pre-visit Planning (SDOH unable to reach [facility] ) 06/21/2024 Travel 06/20/2024 Patient Outreach [facility] [address] [place] [address] Idalia Clark MD Pre-visit Planning (SDOH Screening negative and Tobacco screening negative) from Last 3 Months Immunizations Immunization Administration Dates Next Due Influenza Quadrivalent Adjuvanted [...] 04/27/2023,04/26/2013 Zoster, Recombinant 05/11/2023 Zoster, live 04/26/2013 Family History Medical History Relation Name Comments Breast cancer Neg Hx Colon cancer Neg Hx Ovarian cancer Neg Hx Social History Tobacco Use Types Packs/Day Years Used Date Smoking Tobacco: Never Passive Smoke Exposure: Never Smokeless Tobacco: Never Tobacco Cessation:Counseling Given: Not Answered Alcohol Use Standard Drinks/Week Comments Never 0 (1 standard drink = 0.6 oz pur e alcohol) Housing Stability Answer Date Recorded What is your housing situation today? I have monica syed 06/20/[address] you li ve. Do you have problems with any of the following? None of the above 06/20/2024 Food Insecurity Answer Date Recorded Within the past 12 months, y ou worried that your food would run out before you got money to buy more: Never True 06/20/2024 Within the past 12 months,th e food you bought just didn't last and you didn't have enough money to get more: Never True 03/2025 Transportation Answer Date Recorded In the past 12 months, has l ack of transportation kept you from medical appts, meetings, work or from getting things needed for daily living? No 06/20/2024 Utilities Answer Date Recorded In the past 12 months, has t he electric, gas, oil or water company threatened to shut off services in your home? No 06/20/2024 Internet Access Answer Date Recorded Internet Access Q1 Yes 06/20/2024 Internet Access Q2 Not on file 06/20/2024 Comments No Sex and Gender Information Value Date Recorded Sex Assigned at Female 02/08/2022 10:20 AM EDT Legal Sex Female 10:20 AM EDT Gender Identity Female 02/08/2022 10:20 AM EDT Sexual Orientation Straight 02/08/2022 10 :20 AM EDT Last Filed Vital Signs Vital Sign Reading Time Taken Comments Blood Pressure 149/89 08/28/2024 3:09 PM EDT Pulse 75 08/28/2024 3:09 PM EDT Temperature 36.1 ??C (97 ??F) 08/28/2024 3:09 PM EDT Respiratory Rate 18 08/28/2024 3:09 PM EDT Oxygen Saturation 95% 06/28/2024 9:12 AM EDT Inhaled Oxygen Concentration - - Weight 77 kg (169 lb 12.8 oz) 08/28/2024 3:09 PM EDT Height 165.1 cm (5' 5 ) 08/28/2024 3:09 PM EDT Body Mass Index 28.26 08/28/2024 3:09 PM EDT Plan of Treatment Health Maintenance Due Date Last Done Comments CT Colonography 1949 Depression Screening 1949 FIT 1949 FOBT 1949 Sigmoidoscopy 1949 Alcohol/Substance Use Screening 1961 Hepatitis C Screening 06/23/1967 Zoster Vaccines (3 of 3) 07/06/2023 05/11/2023, 04/11 Dental Oral Exam 11/25/2023 05/26/2023, , 01/11/2019 Dental Prophylaxis 11/25/2023 05/26/2023, 0 04/23/2021, 07/02/2020, Additional history exists Dental X-Ray: Bitewings 05/27/2024 05/26/19, 04/23/2021, 01/11/2019 COVID-19 Vaccine ( season) 2024 12/14/2023, 03/27/2021, 05/27/2020, Additional history exists Colonoscopy 10/03/2024 10/03/2014 SDOH Screening 06/20/2025 06/20/2024 Tobacco Screening 06/28/2025 06/28/2024 Dental X-Ray: Full Mouth 05/27/2026 05/26/2023, 10/0 06/2018 Colorectal Cancer Screening 07/02/2026 FIT DNA/Cologuard 07/02/2026 07/03/2023 DTaP/Tdap/Td Vaccines (3 - Td or Tdap) 04/27/2033 04/27/2023, 04/26/2013 Pneumococcal Vaccine: 50+ Years Completed 03/09/2017, 07/24/2014 RSV Patients and Patients Aged 60 years or older Completed 05/11/2023 Influenza Vaccine Completed 12/14/2023, , 01/01/2019, Additional [...] patient's age to complete this topic Meningococcal B Vaccine Aged Out No l onger eligible based on patient's age to complete [...] Procedure Name Priority Date/Time Associated Diagnosis Comments CRYOTHERAPY SKIN LESION Routine 06/28/2024 12:55 PM EDT Actinic keratitis, unspecified laterality LAB COLOGUARD?? COLON CANCER SCREEN Routine 07/03/2023 [...] Recently Relevant to Health Maintenance Results * Cryotherapy, skin lesion (06/28/2024 12:55 PM EDT) Narrative Idalia Clark MD - 06/28/2024 12:55 PM EDT Idalia Clark MD ? 06/28/2024 ??1:06 PM Cryotherapy, skin lesion Date/Time: 06/28/2024 12:55 PM Performed by: Idalia Clark MD Authorized by: Idalia Clark MD ?? Confirmed correct patient, procedure, site, and patient consented: Yes ?? Consent: ??Consent obtained: ??Written ??Consent given by: ??Patient ??Procedure risks and benefits discussed: Yes ?Patient questions answered: Yes ?Patient agrees, verbalizes understanding, and wants to proceed: Yes ?Instructions and paperwork completed: Yes ?? [place] protocol: ??Procedure explained and questions answered to patient or proxy's satisfaction: yes ?Immediately prior to procedure, a time out was called: yes ?Patient identity confirmed: ??Verbally with patient Pre-procedure details: ??Skin preparation: ??Chlorhexidine with alcohol Sedation: ??Sedation type: ??None Anesthesia: ??Anesthesia method: ??None Post-procedure details: ??Procedure completion: ??Tolerated well, no immediate complications us Idalia Clark MD DERM PROCEDURE ORDERABLES Fin al Result * Cologuard?? colon cancer screening (07/03/2023 3:00 AM EDT) Cologuard Result Negative Negative 07/07/19 11:21 AM EDT [facility] (CLIA #:[id number]) Comment: NEGATIVE TEST RESULT. A negative Cologuard [...] cancer. ??Following a negative Cologuard result, the [place] Cancer Society and U.S. Multi-Society Task Force screening guidelines recommend a Cologuard re-screening interval of 3 years. References: [place] [employer] Guideline for Colorectal Cancer Screening: https://www.cancer.org/cancer/hgnhu-qkebyf-pnzvyx/gtlhxtavb-klgehokss-upyikaz/ac s-rec ommendations.html.; Americo JAIN, Bailey CHUNG, Negrito ChaudhryK, Colorectal Cancer Screening: Recommendations for Physicians and Patients from the U.S. Multi-Society Task Force on Colorectal Cancer Screening , Am J Gastroenterology 2017; 112:9990-7135. TEST DESCRIPTION: Composite algorithmic analysis of stool [...] (Naseem Madera al, N Engl J Med 2014;370(14):0184-8855.) Cologuard may produce a false negative or false positive result (no colorectal cancer or precancerous polyp present at colonoscopy follow up). A negative Cologuard test result does not guarantee the absence of CRC or advanced adenoma (pre-cancer). The current Cologuard screening interval is every 3 years. ([place] Cancer Society and U.S. Multi-Society Task Force). Cologuard performance data in a 10,000 patient pivotal study using colonoscopy as the reference method can be accessed at the following location: www.[employer]/results. Additional description of the Cologuard test process, warnings and precautions can be found at www.[employer].3CLogic. Stool specimen (specimen) 07/03/2023 3:00 AM EDT 07/04/2023 11:32 AM EDT Idalia Clark MD LAB MOLECULAR DIAGNOSTICS ORD ERABLES Final Result [facility] (CLIA #:[id number]) [address] [place] [address], * Colonoscopy (10/03/2014) Colonoscopy Normal Normal Narrative Nisreen Bright - 10/03/2014 Recommended 10 year follow up Historical Provider HEALTH MAINTENANCE Final Result from Last 3 Months or Most Recently Relevant to Health Maintenance Insurance MEDICARE [facility] STANDARD DENTAL - HSN FULL (MEDICAID) Care Teams Stoper Relationship Specialty Start Date End Date Idalia Clark MD [address] [place] [id number] PCP - General Family Medicine 07/31/20
--- OUTSIDE RECORDS SUMMARY | 2024-08-29 12:10 | XMS_ITS | Encounter Summary ---
Author Organization [employer] Address [address] [facility] 7t [place] [address] Care Team Providers Care Collection Administrator Name Role Phone Idalia Clark MD Primary Care Provider [phone] Reason for Visit * Reason Onset Date Comments cx appt rs 04/15/2023 Encounter Details Date Type Department Care Team ([facility] st Contact Info) Description 04/15/2023 Telephone [facility] [address] [place] [address] Gurmeet Dawkins cx appt rs Social History [...] documented in this encounter Plan of Treatment Not on file documented as of this encounter Visit Diagnoses Not on filedocumented in this encounter Care Teams Collection Administrator Relationship Specialty Start Date End Date Idalia Clark MD [address] [place] [address] PCP - General Family Medicine 07/31/20 documented as of this encounter
--- OUTSIDE RECORDS SUMMARY | 2024-08-29 12:10 | XMS_ITS | Encounter Summary ---
Author Organization [employer] [facility] Address [address] [place] [address] [address] [place] [address] Care Team Providers Care Tare Man Name Role Phone Idalia Clark MD Primary Care Provider [phone] Reason for Referral * Imaging (Urgent) - Authorized Specialty Diagnoses / Procedures Referred By Contac t Referred To Contact Radiology Diagnoses Polyp, cervix Bloating Procedures Us Pelvis complete Brenda Craven CNM [address] [place] [address] Phone: tel: fax: [address] Phone: tel: fax: Referral ID Status Reason Start Date Expiration Date V isits Requested Visits Authorized [id number] Authorized 08/28/2024 08/28/2025 1 1 * Imaging (Urgent) - Authorized Specialty Diagnoses / Procedures Referred By Contac t Referred To Contact Radiology Diagnoses Polyp, cervix Bloating Procedures US Pelvis Transvaginal Brenda Craven CNM [address] [place] [address] Phone: tel: fax: [address] Phone: tel: fax: Referral ID Status Reason Start Date Expiration Date V isits Requested Visits Authorized [id number] Authorized 08/28/2024 08/28/2025 1 1 * Imaging (Routine) - Authorized Specialty Diagnoses / Procedures Referred By Contac t Referred To Contact Radiology Diagnoses Senile osteoporosis Procedures BD DEXA Axial Brenda Craven CNM [address] [place] [address] Phone: tel: fax: [address] Phone: tel: fax: Referral ID Status Reason Start Date Expiration Date V isits Requested Visits Authorized [id number] Authorized 08/28/2024 08/28/2025 1 1 * Imaging (Routine) - Authorized Specialty Diagnoses / Procedures Referred By Juanac t Referred To Contact Radiology Diagnoses Breast cancer screening by mammogram Procedures BI Mammogram Screening Tomosynthesis Bilateral Brenda Craven CNM [address] [place] [address] Phone: tel: fax: [address] Phone: tel: fax: Referral ID Status Reason Start Date Expiration Date V isits Requested Visits Authorized [id number] Authorized 08/28/2024 08/28/2025 1 1 Reason for Visit * Reason Comments Gynecologic Exam Encounter Details Date Type Department Care Team (Latest Contact Info) Description 08/28/2024 3:15 PM EDT Procedure Visit [facility] [address] [place], [place] [phone] Brenda Craven CNM [address] [place], [place] Cervical cancer screening (Primary Dx); Polyp, cervix; Bloating; Senile osteoporosis; Breast cancer screening by mammogram Social History Tobacco Use Types Packs/Day Years [...] 18 08/28/2024 3:09 PM EDT Oxygen Saturation - - Inhaled Oxygen Concentration - - Weight 77 kg (169 lb 12.8 oz) 08/28/2024 3:09 PM EDT Height 165.1 cm (5' 5 ) 08/28/2024 3:09 PM EDT Body Mass Index 28.26 08/28/2024 3:09 PM EDT documented in this encounter Progress Notes * Brenda Merissa, INDYM - 08/28/2024 3:15 PM EDT Subjective Patient ID: Yuli Stewart is a 74 y.o. female who presents for DATA SOFTWARE ENGINEER visit Pap NIL/HPV neg 08/2020. Pap NIL/HPV negative 08/2015. 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 Not taking antiviral therapy. Not sexually active. Known cervical polyp. Denies bleeding. 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 T-score -4.1 spine 11/2019. Currently taking Ca. No fractures. Doesn't think she has had BMDsince 2019. No longer followed by endocrinology due to visit cost. Mammogram BIRADS 1, cat b 10/2023. Would like breast exam and pap today. 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 Yuli does not visit him,coping well. Has good social supports, hobbies and involvement with confucianism. 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 Notes unintentional weight gain and bloating for past few years. Hasn't eaten since yesterday so she wouldn't feel bloated for pelvic exam today. Review of Systems Constitutional: Positive for unexpected weight change. Gastrointestinal: Positive for abdominal distention. Negative for constipation, diarrhea, nausea and vomiting. Genitourinary: Negative for dyspareunia, dysuria, frequency, genital sores, hematuria, menstrual problem, pelvic pain, urgency, vaginal bleeding, vaginal discharge and vaginal pain. No abnormal pap, no abnormal bleeding, no breast pain, no breast mass, no nipple discharge Objective BP (!) 149/89 (BP Location: Right arm, Patient Position: Sitting, BP Cuff Size: Adult) Pulse 75 Temp 97 ??F (36.1 ??C) (Oral) Resp 18 Ht 5' 5 (1.651 m) Wt 169 lb 12.8 oz (77 kg) BMI 28.26 kg/m?? Physical Exam Constitutional: Appearance: Normal appearance. Chest: Breasts: Right: Normal. No swelling, bleeding, inverted nipple, mass, nipple discharge, skin change or tenderness. Left: Normal. No swelling, bleeding, inverted nipple, mass, nipple discharge, skin change or tenderness. Genitourinary: General: Normal vulva. Labia: Right: No rash, tenderness, lesion or injury. Left: No rash, tenderness, lesion or injury. Vagina: Normal. No signs of injury and foreign body. No vaginal discharge, erythema, tenderness, bleeding or lesions. Cervix: No cervical motion tenderness, discharge, friability, lesion, erythema, cervical bleeding or eversion. Uterus: Normal. Not enlarged and not tender. Adnexa: Right adnexa normal and left adnexa normal. Right: No mass, tenderness or fullness. Left: No mass, tenderness or fullness. Comments: Tiny polyp in os. Atrophic changes vaginally Lymphadenopathy: Upper Body: Right upper body: No supraclavicular or axillary adenopathy. Left upper body: No supraclavicular or axillary adenopathy. Neurological: Mental Status: She is alert. Psychiatric: Mood and Affect: Mood normal. Behavior: Behavior normal. Assessment/Plan Diagnoses and all orders for this visit: Cervical cancer screening - Pap Smear Cotest today. May discontinue screening if normal/HPV negative. Polyp, cervix - US Pelvis Transvaginal; Future - Us Pelvis complete; Future Appears unchanged from previous visits. Report bleeding. Sampled with pap today. Bloating - US Pelvis Transvaginal; Future - Us Pelvis complete; Future No family history of breast/DATA SOFTWARE ENGINEER cancer, but will order ultrasound in light of weight gain and bloating as precaution. Senile osteoporosis - BD DEXA Axial; Future DEXA ordered. Asked to schedule with mammogram. Breast cancer screening by mammogram - BI Mammogram Screening Tomosynthesis Bilateral; Future Mammogram 10/2024. Asked to scheduled with DEXA. documented in this encounter Plan of Treatment Scheduled Orders Name Type Priority Associated Diagnoses Orde r Schedule BI Mammogram Screening Tomosynthesis Bilateral Imaging Routine Breast cancer screening by mammogram Expected: 08/28/2024, Expires: 10/28/2025 BD DEXA Axial Imaging Routine Senile osteoporosis Expected: 08/28/2024, Expires: 08/28/2025 Pap Smear Pathology and Cytology Routine Cervical cancer screening Ordered: 08/28/2024 US Pelvis Transvaginal Imaging Urgent Polyp, cervix Bloating Expected: 08/28/2024, Expires: 08/28/2025 Us Pelvis complete Imaging Urgent Polyp, cervix Bloating Expected: 08/28/2024, Expires: 08/28/2025 documented as of this encounter Visit Diagnoses Diagnosis Cervical cancer screening- Primary Screening for malignant neoplasm of the cervix Polyp, cervix Mucous polyp of cervix Bloating Flatulence, eructation, and gas pain Senile osteoporosis Breast cancer screening by mammogram documented in this encounter Care Teams Tare Man Relationship Specialty Start Date End Date Idalia Clark MD [address] [place] [address] PCP - General Family Medicine 07/31/20 documented as of this encounter
--- OUTSIDE RECORDS SUMMARY | 2024-08-29 12:10 | XMS_ITS | Encounter Summary ---
Author Organization [facility] Address [address] [facility] [address] [place] [address] Care Team Providers Care Envelope Press Operator Name Role Phone Idalia Clark MD Primary Care Provider [phone] Encounter Details Date Type Department Care Team (Latest Contact Info) Description 08/27/2024 Travel Social History Tobacco Use Types Packs/Day [...] on filedocumented in this encounter Care Teams Envelope Press Operator Relationship Specialty Start Date End Date Idalia Clark MD [address] [place] [address] PCP - General Family Medicine 07/31/20 documented as of this encounter
--- OUTSIDE RECORDS SUMMARY | 2024-08-29 12:10 | XMS_ITS | Encounter Summary ---
Author Organization [employer] [facility] Address [address] [place] [address] Care Team Providers Care Information Systems Professor Name Role Phone Idalia Clark MD Primary Care Provider [phone] Encounter Details Date Type Department Care Team (Latest Contact Info) Description 08/28/2024 Travel Social History Tobacco Use Types Packs/Day [...] on filedocumented in this encounter Care Teams Information Systems Professor Relationship Specialty Start Date End Date Idalia Clark MD [address] [place] [address] PCP - General Family Medicine 07/31/20 documented as of this encounter
[2024-08-31 14:34] LABS: HPV Genotype 16 Negative (Negative); HPV Genotype 18 Negative (Negative); HPV High Risk Negative (Negative)
== END 2024-08-28 00:01 | disposition home or self-care (01) ==
LOC: HO.HHCLNP
PROVIDERS: Visit Provider Advanced Practice Midwife
DX: Z12.4 Encounter for screening for malignant neoplasm of cervix (principal); Z78.0 Asymptomatic menopausal state
CPT/HCPCS: 87626; 88175

== ENCOUNTER 2024-10-16 13:56 | Outpatient (REF) | payer MEDICARE, MEDICAID, SELFPAY ==
--- NOTE | ~2024-10-16 | US_ITS ---
EXAMINATION: US PELVIS CLINICAL INFORMATION: Bloating, weight gain, cervical polyp. COMPARISON: None available. TECHNIQUE: Ultrasound of the pelvis is performed using both transabdominal and transvaginal transducers along with Doppler. Transvaginal imaging is performed due to inadequate visualization transabdominally. FINDINGS: UTERUS: The uterus is anteverted and measures 7.1 x 2.7 x 5.4 cm. The cervix has a normal appearance with small nabothian cysts present. The double wall endometrial thickness is 2 mm. A small amount of nonspecific fluid is present in the endometrial canal. The uterus is smooth in contour and has normal myometrial echogenicity. No visible fibroid. ADNEXA: Both ovaries are visualized. There is normal color flow to the adnexa. There is no ovarian torsion. There is no pelvic ascites or fluid collection. There are no adnexal masses. Right ovary measures 2.4 x 2.4 x 2.8 cm. Normal sonographic appearance. There is a simple ovarian cyst measuring 1.7 x 2.1 x 1.9 cm. Left ovary measures 1.5 x 1.0 x 1.5 cm. Normal sonographic appearance. US/US pelvic and transvaginal IMPRESSION: 1. Right ovarian simple appearing cyst measuring 1.7 x 2.1 x 1.9 cm. This is consistent with a benign entity. 2. Normal left ovary. 3. Normal uterus with 2 mm thick endometrium. Tiny amount of nonspecific fluid within the endometrial canal. 4. No free fluid or adnexal mass. Electronically signed by: Jb Yarbrough MD 10/16/2024 02:48 PM EDT
--- OUTSIDE RECORDS SUMMARY | 2024-10-16 14:46 | XMS_ITS | Encounter Summary ---
Author Organization [employer] Address [address] [facility] [facility] [address] [place] [address] Care Team Providers Care Pipe And Tank Fabricator Name Role Phone Idalia Clark MD Primary Care Provider Encounter Details Date Type Department Care Team (Late st Contact Info) Description 08/31/2024 Results Follow-Up [facility] [address] [place], [place] [phone] Brenda Craven CNM [address] [place], [place] [phone] Pap Smear Social History Tobacco Use Types Packs/Day Years [...] as of this encounter Miscellaneous Notes * Result Encounter Note - Brenda Craven CNM - 08/31/2024 3:52 PM EDT Please let Yuli know her pap was normal HPV negative, which is good news. Thanks! documented in this encounter Plan of Treatment Not on file documented as of this encounter Visit Diagnoses Not on filedocumented in this encounter Care Teams Pipe And Tank Fabricator Relationship Specialty Start Date End Date Idalia Clark MD [address] [place] [address] PCP - General Family Medicine 07/31/20 documented as of this encounter
== END 2024-10-16 13:57 | disposition home or self-care (01) ==
LOC: HO.HMGCX 13:56
PROVIDERS: PCP Pediatrics; Visit Provider Advanced Practice Midwife
DX: N84.1 Polyp of cervix uteri (principal); R14.0 Abdominal distension (gaseous)
CPT/HCPCS: 76830; 76856

== ENCOUNTER → 2024-10-16 14:18 | Outpatient (BNV) | payer MEDICARE, MEDICAID, SELFPAY | PROVIDERS: PCP Pediatrics; Visit Provider Radiology Diagnostic Radiology | DX: N83.291 Other ovarian cyst, right side (principal) | CPT/HCPCS: 76830; 76856 ==

== ENCOUNTER 2024-11-02 09:46 | Outpatient (REF) | payer MEDICARE, MEDICAID, SELFPAY ==
--- NOTE | ~2024-11-02 | MM_ITS ---
EXAMINATION: MM SCREENING DIGITAL BREAST TOMOSYNTHESIS, BILATERAL CLINICAL INFORMATION: Screening. Asymptomatic. COMPARISON: Mammography: Comparison is made with available priors TECHNIQUE: Digital breast mammography with tomosynthesis is performed in both the craniocaudal and mediolateral oblique views along with computer-aided detection (CAD). FINDINGS: There are scattered areas of fibroglandular density (ACR BI-RADS breast composition Category b). There are no significant masses, abnormal calcifications, or other abnormalities. MM/MM tomosynthesis screening BI IMPRESSION: No mammographic evidence of malignancy. ASSESSMENT: BI-RADS BI-RADS 1 - Negative RECOMMENDATION: Routine annual mammography screening. 1 year F/U This examination should not preclude the clinical evaluation of a suspicious palpable abnormality. This patient's information was entered into a reminder system with a target due date for their next mammogram. Electronically signed by: Olimpia Ma DO 11/12/2024 01:34 PM EDT
--- NOTE | ~2024-11-02 | MM_ITS ---
EXAMINATION: DXA BONE DENSITY AXIAL HISTORY: Known osteoporosis. TECHNIQUE: [email or web address] Dual energy absorptiometry (DEXA) of the lumbar spine, total left hip, and femoral neck was performed. COMPARISON: Comparison is made with the prior examination dated 11/13/2019. FINDINGS: The bone mineral density of the lumbar spine is 0.909 g/cm2, corresponding to a T-score of -2.3, and a Z-score of -0.8. This is indicative of osteopenia. This represents a BMD change of 20.9% compared to the prior exam. This is statistically significant. The bone mineral density of the left total hip is 0.768 g/cm2, corresponding to a T-score of -1.9, and a Z-score of -0.3. This is indicative of osteopenia. This represents a BMD change of -4.5% compared to the prior exam. This is statistically significant. The bone mineral density of the left femoral neck is 0.776 g/cm2, corresponding to a T-score of -1.9, and a Z-score of -0.1. This is indicative of osteopenia. This represents a BMD change of -0.8% compared to the prior exam. FRACTURE RISK: The FRAX index suggests a ten year probability of major osteoporotic fracture of 12.8%, and of hip fracture 3.2%. MM/XR DEXA axial skeleton IMPRESSION: Based on bone mineral density, and according to World Health Organization (WHO) criteria, the diagnosis is consistent with osteopenia. Statistically, 68% of repeat scans fall within 1 SD (+/- 0.010 g/cm2 for AP spine L1-L4) and 1 SD (+/- 0.012 g/cm2 for femur total) FRAX is a trademark of the [employer] [place] [facility], a World Health Organization (WHO) Collaborating Center. Electronically signed by: Roly Carrion MD 11/02/2024 10:50 AM EDT
== END 2024-11-02 09:47 | disposition home or self-care (01) ==
LOC: HO.MAMMO 09:46
PROVIDERS: PCP Advanced Practice Midwife; Visit Provider Advanced Practice Midwife
DX: Z12.31 Encounter for screening mammogram for malignant neoplasm of breast (principal); M81.0 Age-related osteoporosis without current pathological fracture
CPT/HCPCS: 77063; 77067; 77080

== ENCOUNTER → 2024-11-02 10:30 | Outpatient (BNV) | payer MEDICARE, MEDICAID, SELFPAY | PROVIDERS: PCP Advanced Practice Midwife; Visit Provider Radiology Diagnostic Radiology | DX: E28.39 Other primary ovarian failure (principal) | CPT/HCPCS: 77080 ==